=== PATIENT | female | born 1960 | race Caucasian/White ===

== ENCOUNTER 2016-10-11 11:22 | Emergency (ER) | payer OTHER | END 2016-10-11 14:22 | disposition home or self-care (01) | LOC: FER 11:22 | DX: M25.562 Pain in left knee (principal); E11.9 Type 2 diabetes mellitus without complications; E78.5 Hyperlipidemia, unspecified; Z88.8 Allergy status to other drugs, medicaments and biological substances; Z79.84 Long term (current) use of oral hypoglycemic drugs; Z79.4 Long term (current) use of insulin | CPT/HCPCS: 73502; 73552; 73564 ==

== ENCOUNTER → 2021-11-10 | Day surgery (SDC) | payer OTHER ==
[~2021-11-10] VITALS: Ht 157.5 cm; Wt 112.5 kg
[~2021-11-10] MED LIST: ABILIFY10 MG PO; ADMELOG100 UNIT/1 IJ; AMLODIPINE BESYL5 MG PO; ASPIRIN EC81 MG PO; BACTRIM DS TAB1 EACH PO; BASAGLAR K100 UNIT/1 SC; CALCIUM + VITA1 EACH PO; CYCLOBENZAPRINE10 MG PO; CYMBALTA 30MG C30 MG PO; FLOVENT HF120 PUFFS/ INH; GLUCOTROL XL5 MG PO; HUMALOG 75100 UNIT/M SC; HUMULIN R100 UNIT/2 SC; HUMULIN R500 UNIT/1 SC; JARDIANCE10 MG PO; KLOR-CON M20 T20 MEQ PO; KLOR-CON M2020 MEQ PO; LASIX40 MG PO; LEVAQUIN500 MG PO; LYRICA 50MG CAP50 MG PO; METFORMIN HCL500 MG PO; MIDODRINE HCL10 MG PO; MOTRIN600 MG PO; PEPCID AC20 M1 PO; PERCOCET 5-3251 EACH PO; PREDNISONE5 MG/5 ML OS; REQUIP2 MG PO; SINGULAIR10 MG PO; SYMBICORT 80-10.2 GM INH; TAMIFLU 75MG CA75 MG PO; TORSEMIDE10 MG PO; TRIAMTERENE-HC1 EAC3 PO; TRULICITY0.75 MG/0. SC; VOLTAREN **OUT75 MG PO; WIXELA 500-501 EACH INH; XIIDRA1 EACH OU; ZOCOR20 MG PO; ZOFRAN4 MG PO; ZYRTEC10 M3 PO
[2021-11-10 06:45] LABS: HCT 43.6 % (37.0-47.0); HGB 13.7 g/dl (12.5-16.0); MCH 26.9 pg (25.0-31.0); MCHC 31.4 g/dL (32.0-36.0); MCV 85.7 fL (78.0-100.0); MPV 10.6 fL (6.0-9.5); RBC 5.09 M/uL (4.20-5.40); RDW 14.9 % (11.5-14.0); WBC 8.1 K/uL (4.0-10.5)
== END | disposition home or self-care (01) ==
LOC: FAS 06:01
PROVIDERS: Orthopaedic Surgery
DX: G56.01 Carpal tunnel syndrome, right upper limb (principal); I10 Essential (primary) hypertension; E11.9 Type 2 diabetes mellitus without complications; E78.5 Hyperlipidemia, unspecified; I25.2 Old myocardial infarction; R05.3 Chronic cough; Z88.8 Allergy status to other drugs, medicaments and biological substances; Z91.048 Other nonmedicinal substance allergy status; Z79.82 Long term (current) use of aspirin; Z79.4 Long term (current) use of insulin; Z79.899 Other long term (current) drug therapy
CPT/HCPCS: 36415; 93005; J1885; J2250; J2405; J2704; J3010; J7120